=== PATIENT | female | born 1985 | race Caucasian/White ===

== ENCOUNTER 2020-12-19 11:22 | Outpatient (CLI) | payer BC | END 2020-12-19 11:23 | disposition home or self-care (01) | LOC: BICRAD 11:22 | PROVIDERS: ATTEND Podiatrist | DX: M79.672 Pain in left foot (principal); Z98.890 Other specified postprocedural states ==

== ENCOUNTER 2022-02-12 11:30 | Inpatient (IN) | payer BC ==
[2022-02-17] MEDS ORDERED: Levofloxacin 500 mg/D5W 100 ml Premix Bag ONE (06:27)
[2022-02-17] MEDS ORDERED: Lidocaine 1% (PF) 30 ML VIAL ONE (06:28)
[2022-02-17] MEDS ORDERED: EPINEPHrine 1 MG/ML AMP ONE (06:28)
[2022-02-17] MEDS ORDERED: Lidocaine 1% MPF 2 ML VIAL ONE (06:29)
[2022-02-17] MEDS ORDERED: Thrombin 5000 UNITS/5 ML VIAL ONE ×2 (06:29→10:56)
[2022-02-17] MEDS ORDERED: Bacitracin Zinc Ointment 30 gm TUBE ONE (06:29)
[2022-02-17] MEDS ORDERED: Neomycin-Polymyxin 1 ML AMP ONE ×2 (06:29→12:05)
[2022-02-17] MEDS ORDERED: levETIRAcetam 500 MG/5 ML VIAL SLOW IVP SCH (06:30)
[2022-02-17] MEDS ORDERED: Clindamycin/D5W 900 MG in Premix Bag 1 BAG IVPB SCH (06:30)
[2022-02-17] MEDS ORDERED: Dexmedetomidine 200 MCG/2 ML VIAL ONE (06:33)
[2022-02-17] MEDS ORDERED: fentaNYL PF 100 MCG/2 ML SYRINGE ONE (06:33)
[2022-02-17] MEDS ORDERED: Promethazine HCl 25 MG/ML VIAL IM PRN ×2 (06:43→13:05)
[2022-02-17] MEDS ORDERED: HYDROcodone/Acetaminophen 10/325 mg Tablet PO PRN (06:43)
[2022-02-17] MEDS ORDERED: HYDROcodone/Acetaminophen 7.5/325 mg Tablet PO PRN (06:43)
[2022-02-17] MEDS ORDERED: Mag-Al 1200 mg/1200 mg/30 ML UDCUP PO PRN (06:43)
[2022-02-17] MEDS ORDERED: diphenhydrAMINE 50 MG/ML VIAL IVP PRN (06:43)
[2022-02-17] MEDS ORDERED: hydrALAZINE 20 MG/ML VIAL SLOW IVP PRN ×2 (06:43→13:04)
[2022-02-17] MEDS ORDERED: Docusate 100 MG CAP PO PRN (06:43)
[2022-02-17] MEDS ORDERED: Acetaminophen 325 MG TAB PO PRN (06:43)
[2022-02-17] MEDS ORDERED: Labetalol HCl 100 MG/20 ML VIAL SLOW IVP PRN ×2 (06:43→13:04)
[2022-02-17] MEDS ORDERED: Mannitol 12.5 GM/50 ML IV SCH (06:45)
[2022-02-17] MEDS ORDERED: Dexamethasone 20 MG/5 ML VIAL ONE (07:10)
[2022-02-17] MEDS ORDERED: PROPOFOL 200 MG/20 ML VIAL ONE (07:10)
[2022-02-17] MEDS ORDERED: Ondansetron PF 4 MG/2 ML Vial ONE (07:10)
[2022-02-17] MEDS ORDERED: ePHEDrine 50 MG/ML VIAL ONE (07:10)
[2022-02-17] MEDS ORDERED: Vecuronium 10 MG VIAL ONE (07:10)
[2022-02-17] MEDS ORDERED: Phenylephrine 10 MG/ML VIAL ONE (07:10)
[2022-02-17] MEDS ORDERED: Rocuronium Bromide 10 MG/ML (10ML VIAL) ONE (07:10)
[2022-02-17] MEDS ORDERED: Acetaminophen/Codeine 30-300mg Tablet PO PRN (07:13)
[2022-02-17 07:18] LABS: SARS-CoV-2 NAA Rapid Test Not Detected (NotDetected)
[2022-02-17] MEDS ORDERED: manNITOL 20% 500 ML ONE (07:23)
[2022-02-17] MEDS ORDERED: MINERAL OIL/WHITE PETROLATUM 3.5 GM TUBE ONE (07:38)
[2022-02-17] MEDS ORDERED: Rocuronium Bromide 50 MG/5 ML VIAL ONE (08:31)
[2022-02-17] MEDS ORDERED: PHENYLEPHRINE-NS 100 MCG/ML 10 ML SYRINGE ONE ×2 (11:50→12:37)
[2022-02-17] MEDS ORDERED: SUGAMMADEX SODIUM 200 MG/2 ML VIAL ONE (12:17)
[2022-02-17] MEDS ORDERED: Promethazine HCl 25 MG/ML VIAL IVPB PRN (13:05)
[2022-02-17] MEDS ORDERED: Ondansetron HCl/PF 4 MG/2 ML Vial IVP PRN (13:05)
[2022-02-17] MEDS ORDERED: FENTANYL 50 MCG/ML 1 ML VIAL ONE (13:24)
[2022-02-17] MEDS ORDERED: hydrALAZINE 20 MG/ML VIAL ONE (13:24)
[2022-02-17 14:39] VITALS: BMI 45.3
[2022-02-17] MEDS: Sodium Chloride 0.9% 1,000 ML IV SCH ×2 (14:48→21:10)
[2022-02-17] MEDS: Clindamycin/D5W 900 MG in Premix Bag 1 BAG IVPB SCH ×2 (15:16→19:40)
[2022-02-17] MEDS: Ondansetron PF 4 MG/2 ML Vial IVP PRN (19:38)
[2022-02-17] MEDS: Morphine 4 MG/ML VIAL SLOW IVP PRN ×2 (19:38→21:25)
[2022-02-17] MEDS ORDERED: levETIRAcetam in NS 500 MG in Premix Bag 1 BAG IVPB SCH (21:00)
[2022-02-17] MEDS: levETIRAcetam 500 MG/5 ML VIAL SLOW IVP SCH (21:25)
[2022-02-18] MEDS: Clindamycin/D5W 900 MG in Premix Bag 1 BAG IVPB SCH (01:02)
[2022-02-18] MEDS: Morphine 4 MG/ML VIAL SLOW IVP PRN (01:03)
[2022-02-18] MEDS: Acetaminophen/Codeine 30-300mg Tablet PO PRN ×4 (04:09→22:18)
[2022-02-18] MEDS: Sodium Chloride 0.9% 1,000 ML IV SCH (08:31)
[2022-02-18] MEDS: levETIRAcetam 500 MG/5 ML VIAL SLOW IVP SCH ×2 (08:39→20:56)
[2022-02-18] MEDS ORDERED: DULoxetine 60 MG CAP PO SCH (11:30)
[2022-02-18] MEDS ORDERED: Cholecalciferol 1,000 UNITS (25 MCG) TAB PO SCH (11:30)
[2022-02-18] MEDS ORDERED: Thyroid 30 MG TAB PO SCH (11:30)
[2022-02-18] MEDS ORDERED: Vortioxetine Hydrobromide [Trintellix] 10 MG Tablet PO SCH (13:15)
[2022-02-19] MEDS: Morphine 4 MG/ML VIAL SLOW IVP PRN ×3 (00:21→20:55)
[2022-02-19] MEDS: Thyroid 30 MG TAB PO SCH (04:42)
[2022-02-19] MEDS: Acetaminophen/Codeine 30-300mg Tablet PO PRN ×3 (06:20→19:36)
[2022-02-19] MEDS ORDERED: Thyroid 30 MG TAB PO SCH (09:00)
[2022-02-19] MEDS: levETIRAcetam 500 MG/5 ML VIAL SLOW IVP SCH ×2 (10:51→20:55)
[2022-02-19] MEDS: Loratadine 10 MG TAB PO SCH (10:51)
[2022-02-19] MEDS: DULoxetine 60 MG CAP PO SCH (10:51)
[2022-02-19] MEDS: Cholecalciferol 1,000 UNITS (25 MCG) TAB PO SCH (10:52)
[2022-02-19] MEDS: METHYLPHENIDATE HCL 36 MG PO SCH (11:37)
[2022-02-20] MEDS: Acetaminophen/Codeine 30-300mg Tablet PO PRN ×2 (02:54→09:28)
[2022-02-20] MEDS: Morphine 4 MG/ML VIAL SLOW IVP PRN ×2 (02:59→08:04)
[2022-02-20] MEDS: Thyroid 30 MG TAB PO SCH (05:44)
[2022-02-20] MEDS: Vortioxetine Hydrobromide [Trintellix] 10 MG Tablet PO SCH ×2 (06:50→09:30)
[2022-02-20] MEDS: Cholecalciferol 1,000 UNITS (25 MCG) TAB PO SCH (08:08)
[2022-02-20] MEDS: levETIRAcetam 500 MG/5 ML VIAL SLOW IVP SCH (08:08)
[2022-02-20] MEDS: DULoxetine 60 MG CAP PO SCH (08:09)
[2022-02-20] MEDS: Loratadine 10 MG TAB PO SCH (08:09)
[2022-02-20] MEDS: Ondansetron PF 4 MG/2 ML Vial IVP PRN (09:27)
[2022-02-20] MEDS: METHYLPHENIDATE HCL 36 MG PO SCH (09:28)
[2022-02-20 13:34] VITALS: BP 92/61; TEMP 97.3
== END 2022-02-20 13:50 | DRG 25 ==
LOC: SURG A 02-17 05:53 → CCU 02-17 14:13 → SURG A 02-18 21:47
PROVIDERS: ADMIT Neurological Surgery; ATTEND Neurological Surgery
PROC: 00B70ZZ Excision of Cerebral Hemisphere, Open Approach (ICD-10-PCS; principal; 2022-02-17)
DX: D32.0 Benign neoplasm of cerebral meninges (principal); G93.6 Cerebral edema; F41.9 Anxiety disorder, unspecified; Z20.822 Contact with and (suspected) exposure to COVID-19; G89.4 Chronic pain syndrome; G43.909 Migraine, unspecified, not intractable, without status migrainosus; F32.A Depression, unspecified; Z79.899 Other long term (current) drug therapy; Z88.0 Allergy status to penicillin; Z88.2 Allergy status to sulfonamides; Z88.5 Allergy status to narcotic agent; Z88.8 Allergy status to other drugs, medicaments and biological substances; Z91.040 Latex allergy status
CPT/HCPCS: 88307; 88331; C1713; C1876; J0171; J0360; J1100; J1200; J1953; J1956; J2001; J2270; J2370; J2405; J2704; J3010; J3490; J7050; J7799; U0002

== ENCOUNTER 2022-02-12 11:41 | Outpatient (CLI) | payer BC ==
[2022-02-12 13:18] LABS: Hemoglobin 13.5 g/dL (12.0-15.5); Mean Corpuscular Hemoglobin 29.4 pg (27.0-33.0); Mean Corpuscular Volume 89.1 fl (81.6-98.3); Mean Platelet Volume 8.9 fl (7.4-10.4); Platelet Count 342 10x3/uL (150-450); RBC Distribution Width 13.2 % (11.5-14.5); Red Blood Cell (RBC) Count 4.59 10x6/uL (3.90-5.03)
[2022-02-12 13:40] LABS: PTT 29.6 sec (22.0-33.0); Prothrombin Time 10.5 sec (9.5-12.1)
== END 2022-02-12 11:42 | disposition home or self-care (01) ==
LOC: LABBT 11:41
PROVIDERS: ATTEND Neurological Surgery
DX: Z01.812 Encounter for preprocedural laboratory examination (principal); D32.9 Benign neoplasm of meninges, unspecified
CPT/HCPCS: 85027; 85610; 85730